=== PATIENT | female | born 1955 | race American Indian/Alaskan Native ===

== ENCOUNTER 2021-02-04 20:00 | Observation (INO) | payer SELFPAY ==
[2021-02-04] MEDS ORDERED: NITROGLYCERIN 0.4 MG TAB SUBL SL ONE (21:26)
[2021-02-04] MEDS ORDERED: MIDAZOLAM 2 MG/2 ML INJ IV ONE (21:27)
[2021-02-04] MEDS ORDERED: SODIUM CHLORIDE 0.9% 500 ML 500 ML IV ONE (21:27)
--- NOTE | 2021-02-04 21:28 | Emergency Department Report ---
ED Chest Pain HPI - General Chief Complaint: Dyspnea/Respdistress Stated Complaint: CHEST PAIN PUI?: No Time Seen by Provider: 02/04/21 21:17 Source: patient, EMS ( EMS documentation not available at time of chart dictati on . Verbal report received from emergency medical service), RN notes reviewed Mode of arrival: Stretcher Limitations: No Limitations - History of Present Illness Initial Comments: The patient is a 65-year-old female. She is not known to myself previously. She recently moved here from [facility]. She believes that she has a history of anxiety and hypertension. She presents to the ER today with c omplaints of central chest pressure, nausea, shortness of breath. It is now resolved. No travel, surgery, immobilization, personal/family history of DVT/PE risk factors. Believes that mother has a history of CHF, and thinks that father has a history of COPD. She was given aspirin by EMS. She reports that she is chest pain-free at this time. No recent cardiac risk ratification that she is aware of. Denies Covid symptomatology Complaint: chest pain -: Sudden Onset: during rest Pain Location: substernal Pain Radiation: none Severity: moderate Quality: aching, heaviness Consistency: now resolved Improves With: nothing Worsens With: nothing Aspirin use within the Past 7 Days: (1) Yes - Related Data On Oral Contraceptives: No Allergies Allergy/AdvReac Type Severity Reaction Status Date / Time No Known Allergies Allergy Verified 02/04/21 21:07 Heart Score - HEART Score History: Moderately suspicious EKG: Non-specific Age: 45-65 Risk factors: 1-2 risk factors Troponin: < normal limit HEART Score: 4 - EKG Read Time Time EKG Completed: 21:20 EKG Read Time: 21:20 - Critical Actions Critical Actions: 4-6 pts:12-16.6% risk of adverse cardiac event. Should be admitted ED Review of Systems ROS: Stated complaint: CHEST PAIN Other details as noted in HPI Constitutional: diaphoresis, malaise. denies: fever Eyes: denies: eye discharge ENT: denies: epistaxis Respiratory: shortness of breath Cardiovascular: chest pain Gastrointestinal: nausea. denies: vomiting, hematemesis, melena, hematochezia Genitourinary: denies: dysuria Musculoskeletal: denies: back pain Neurological: denies: weakness Psychiatric: anxiety Hematological/Lymphatic: denies: easy bleeding ED Past Medical Hx - Past Medical History Hx Hypertension: Yes ED Physical Exam - General Limitations: No Limitations General appearance: alert, in no apparent distress - Head Head exam: Present: atraumatic, normocephalic - Eye Eye exam: Present: normal appearance, EOMI. Absent: nystagmus - ENT ENT exam: Present: normal exam, normal orophraynx, mucous membranes moist, normal external ear exam - Neck Neck exam: Present: normal inspection, full ROM. Absent: tenderness, meningismus - Respiratory Respiratory exam: Present: normal lung sounds bilaterally. Absent: respiratory distress, wheezes, rales, rhonchi, stridor, decreased breath sounds - Cardiovascular Cardiovascular Exam: Present: normal rhythm, tachycardia, normal heart sounds. Absent: bradycardia, irregular rhythm, systolic murmur, diastolic murmur, rubs, gallop - GI/Abdominal GI/Abdominal exam: Present: soft. Absent: distended, tenderness, guarding, rebound, rigid, pulsatile mass - Extremities Exam Extremities exam: Present: normal inspection, full ROM, other (2+ pulses noted in the bilateral upper and lower extremities. There is no palpable cord. negative Homans sign. Muscular compartments are soft. The pelvis is stable.). Absent: pedal edema, calf tenderness - Back Exam Back exam: Present: normal inspection, full ROM. Absent: tenderness, CVA tenderness (R), CVA tenderness (L), paraspinal tenderness, vertebral tenderness - Neurological Exam Neurological exam: Present: alert, oriented X3, other (No facial droop. Tongue midline. Extraocular movements intact bilaterally. Facial sensation intact to light touch in V1, V2, V3 distribution bilaterally. 5 and a 5 strength in 4 extremities. Sensation intact to light touch in 4 extremities.). Absent: motor sensory deficit - Psychiatric Psychiatric exam: Present: anxious - Skin Skin exam: Present: warm, dry, intact, normal color. Absent: rash ED Course Vital Signs 02/04/21 02/04/21 02/04/21 21:06 21:41 22:00 Temperature 98.6 F Pulse Rate 108 H 105 H Respiratory 18 32 H 11 L Rate Blood Pressure 175/88 Blood Pressure 172/86 [Left] O2 Sat by Pulse 100 100 99 Oximetry 02/04/21 02/04/21 02/05/21 23:00 23:24 00:00 Temperature Pulse Rate 95 H 87 Respiratory 11 L Rate Blood Pressure 149/83 146/71 180/90 Blood Pressure [Left] O2 Sat by Pulse 100 98 Oximetry 02/05/21 01:00 Temperature Pulse Rate 93 H Respiratory 22 Rate Blood Pressure 139/78 Blood Pressure [Left] O2 Sat by Pulse 99 Oximetry - Reevaluation(s) Reevaluation #1: 02/05/21 01:46 EKG #[address] scan of the chest is negative for acute findings ERIC score - Eric Score Age > 65: (0) No Aspirin use within the Past 7 Days: (1) Yes 3 or more CAD Risk Factors: (0) No 2 or more Angina events in past 24 hrs: (0) No Known CAD with more than 50% Stenosis: (0) No Elevated Cardiac Markers: (0) No ST Deviation Greater than 0.5mm: (0) No ERIC Score: 1 ED Medical Decision Making - Lab Data Result diagrams: 02/04/21 21:33 02/04/21 21:33 Vital Signs 02/04/21 21:06 Temperature 98.6 F Pulse Rate 108 H Respiratory 18 Rate Blood Pressure 172/86 [Left] O2 Sat by Pulse 100 Oximetry Lab Results 02/04/21 02/04/21 02/04/21 Range/Units 21:33 21:33 21:33 WBC 5.3 (4.5-11.0) K/mm3 RBC 4.49 (3.65-5.03) M/mm3 Hgb 12.7 (10.1-14.3) gm/dl Hct 37.7 (30.3-42.9) % MCV 84 (79-97) fl MCH 28 (28-32) pg MCHC 34 (30-34) % RDW 14.0 (13.2-15.2) % Plt Count 237 (140-440) K/mm3 Lymph % (Auto) 23.5 (13.4-35.0) % [place] % (Auto) 10.7 H (0.0-7.3) % Eos % (Auto) 1.4 (0.0-4.3) % Baso % (Auto) 1.0 (0.0-1.8) % Lymph # (Auto) 1.2 (1.2-5.4) K/mm3 [place] # (Auto) 0.6 (0.0-0.8) K/mm3 Eos # (Auto) 0.1 (0.0-0.4) K/mm3 Baso # (Auto) 0.1 (0.0-0.1) K/mm3 Seg Neutrophils % 63.4 (40.0-70.0) % Seg Neutrophils # 3.3 (1.8-7.7) K/mm3 PT 12.8 (12.2-14.9) Sec. INR 0.87 (0.87-1.13) D-Dimer 285.70 H (0-234) ng/mlDDU Sodium 140 (137-145) mmol/L Potassium 4.5 (3.6-5.0) mmol/L Chloride 103.6 (98-107) mmol/L Carbon Dioxide 25 (22-30) mmol/L Anion Gap 16 mmol/L BUN 13 (7-17) mg/dL Creatinine 0.7 (0.6-1.2) mg/dL Estimated GFR > 60 ml/min BUN/Creatinine Ratio 19 % Glucose 97 (65-100) mg/dL Calcium 9.4 (8.4-10.2) mg/dL Magnesium (1.7-2.3) mg/dL Total Bilirubin 0.30 (0.1-1.2) mg/dL AST 19 (5-40) units/L ALT 17 (7-56) units/L Alkaline Phosphatase 114 (35-129) units/L Total Creatine Kinase (30-135) units/L Troponin T < 0.010 (0.00-0.029) ng/mL Total Protein 7.7 (6.3-8.2) g/dL Albumin 3.8 L (3.9-5) g/dL Albumin/Globulin Ratio 1.0 % TSH (0.270-4.200) mlU/mL 02/04/21 02/04/21 Range/Units 21:33 21:33 WBC (4.5-11.0) K/mm3 RBC (3.65-5.03) M/mm3 Hgb (10.1-14.3) gm/dl Hct (30.3-42.9) % MCV (79-97) fl MCH (28-32) pg MCHC (30-34) % RDW (13.2-15.2) % Plt Count (140-440) K/mm3 Lymph % (Auto) (13.4-35.0) % [place] % (Auto) (0.0-7.3) % Eos % (Auto) (0.0-4.3) % Baso % (Auto) (0.0-1.8) % Lymph # (Auto) (1.2-5.4) K/mm3 [place] # (Auto) (0.0-0.8) K/mm3 Eos # (Auto) (0.0-0.4) K/mm3 Baso # (Auto) (0.0-0.1) K/mm3 Seg Neutrophils % (40.0-70.0) % Seg Neutrophils # (1.8-7.7) K/mm3 PT (12.2-14.9) Sec. INR (0.87-1.13) D-Dimer (0-234) ng/mlDDU Sodium (137-145) mmol/L Potassium (3.6-5.0) mmol/L Chloride (98-107) mmol/L Carbon Dioxide (22-30) mmol/L Anion Gap mmol/L BUN (7-17) mg/dL Creatinine (0.6-1.2) mg/dL Estimated GFR ml/min BUN/Creatinine Ratio % Glucose (65-100) mg/dL Calcium (8.4-10.2) mg/dL Magnesium 2.00 (1.7-2.3) mg/dL Total Bilirubin (0.1-1.2) mg/dL AST (5-40) units/L ALT (7-56) units/L Alkaline Phosphatase (35-129) units/L Total Creatine Kinase 68 (30-135) units/L Troponin T (0.00-0.029) ng/mL Total Protein (6.3-8.2) g/dL Albumin (3.9-5) g/dL Albumin/Globulin Ratio % TSH 3.260 (0.270-4.200) mlU/mL - EKG Data -: EKG Interpreted by Nc EKG shows normal: sinus rhythm Rate: normal - EKG Data 02/04/21 22:43 There is no prior EKG available for comparison. The EKG is interpreted 21: 26 Sinus tachycardia, rate 101 bpm. Normal axis, normal P wave axis. QTC 4 4 4 ms. Minimal motion artifact. Abnormal EKG. This is not a STEMI - Radiology Data Radiology results: pending, report reviewed, image reviewed XR chest 1V ap INDICATION / CLINICAL INFORMATION: Chest Pain. COMPARISON: None available. FINDINGS: SUPPORT DEVICES: None. HEART /PULMONARY VASCULATURE: No significant abnormality. LUNGS / PLEURA: No significant pulmonary or pleural abnormality. No pneumothorax. ADDITIONAL FINDINGS: No significant additional findings. IMPRESSION: 1. No acute findings. Signer Name: Terence Quinn MD Signed: 02/04/2021 8:48 PM Workstation Name: [id number] - Medical Decision Making Differential diagnosis, including but not limited to: Acute coronary syndrome, pneumonia, pulmonary embolism, anxiety, GERD, gastritis, hiatal hernia, costochondritis, anemia Assessment and plan: 65-year-old female, who is tachycardic, but otherwise afebrile, with reassuring vital signs, who is low risk by Wells criteria for pulmonary embolism, who has no DVT or PE risk factors, who is moderate risk for major adverse cardiac event as per heart score, with no recent cardiac risk ratification present, with chest pain, shortness of breath and nausea, strong family history of cardiac disease, no recent cardiac risk ratification, have recommended admission to the medical service for cardiac risk ratification. I discussed this plan of care with the patient. She is agreeable to the plan of care. X-ray the chest unremarkable, laboratory studies unremarkable, D-dimer elevated, CT scan of the chest will be obtained. Hospital physician, Dr. Dena Puga to admit to [facility] with [facility] [employer] Tamika Carl Critical care attestation.: If time is entered above; I have spent that time in minutes in the direct care of this critically ill patient, excluding procedure time. ED Disposition Clinical Impression: Acute chest pain, Elevated blood pressure reading Disposition: ADMITTED INPATIENT Is pt being admited?: Yes Does the pt Need Aspirin: No Condition: Good Instructions: Chest Pain (ED) Referrals: PRIMARY CARE, [Primary Care Provider] - 3-5 Days
--- NOTE | 2021-02-04 21:53 | XRay Report ---
XR chest 1V ap INDICATION / CLINICAL INFORMATION: Chest Pain. COMPARISON: None available. FINDINGS: SUPPORT DEVICES: None. HEART /PULMONARY VASCULATURE: No significant abnormality. LUNGS / PLEURA: No significant pulmonary or pleural abnormality. No pneumothorax. ADDITIONAL FINDINGS: No significant additional findings. IMPRESSION: 1. No acute findings. Signer Name: Terence Quinn MD Signed: 02/04/2021 9:48 PM Workstation Name: [id number]
[2021-02-04 21:59] LABS: Basophils # (Auto) 0.1 K/mm3 (0.0-0.1); Eosinophils # (Auto) 0.1 K/mm3 (0.0-0.4); Eosinophils % (Auto) 1.4 % (0.0-4.3); Hematocrit 37.7 % (30.3-42.9); Hemoglobin 12.7 gm/dl (10.1-14.3); Lymphocytes # (Auto) 1.2 K/mm3 (1.2-5.4); Lymphocytes % (Auto) 23.5 % (13.4-35.0); Mean Corpuscular HGB Conc 34 % (30-34); Mean Corpuscular Volume 84 fl (79-97); Monocytes # (Auto) 0.6 K/mm3 (0.0-0.8); Monocytes % (Auto) 10.7 % (0.0-7.3); Platelet Count 237 K/mm3 (140-440); Red Blood Count 4.49 M/mm3 (3.65-5.03)
[2021-02-04 22:09] LABS: INR 0.87 (0.87-1.13)
[2021-02-04 22:15] LABS: Alanine Aminotransferase 17 units/L (7-56); Albumin 3.8 g/dL (3.9-5); Blood Urea Nitrogen 13 mg/dL (7-17); Calcium 9.4 mg/dL (8.4-10.2); Hemolysis Index 5
[2021-02-04 22:29] LABS: BUN/Creatinine Ratio 19
[2021-02-04] MEDS ORDERED: amLODIPine 5 MG TAB PO ONE (22:50)
[2021-02-04] MEDS ORDERED: ACETAMINOPHEN 325 MG TAB PO PRN ×2 (23:05→23:40)
[2021-02-04] MEDS ORDERED: traMADol 50 MG TAB PO PRN (23:05)
[2021-02-04] MEDS ORDERED: NITROGLYCERIN 0.4 MG TAB SUBL SL PRN (23:05)
[2021-02-04] MEDS ORDERED: MORPHINE 2 MG/1 ML INJ IV PRN (23:05)
[2021-02-04] MEDS ORDERED: HYDROmorphone 1 MG/1 ML INJ IV PRN (23:05)
--- NOTE | 2021-02-04 23:05 | History and Physical Report ---
History of Present Illness Date of examination: 02/04/21 Date of admission: 02/04/21 Chief complaint: Chest pain History of present illness: This is a 65-year-old female seen in the ED at bedside. Patient daughter present at the time of assessment. Per ED record, patient recently moved here from [facility]. She presents to ED with chief complaint of chest pain and shortness of breath. Patient reports a history of hypertension, anxiety and depression. Patient said that she was on blood pressure medicine and had not been compliant with blood pressure medicine. Patient denies alcohol use tobacco use and illicit drug use. Past History Past Medical History: hypertension, hyperlipidemia Past Surgical History: Social history: full code. denies: lives with family, smoking, alcohol abuse, prescription drug abuse, IV drug use Family history: hypertension Medications and Allergies Allergies Allergy/AdvReac Type Severity Reaction Status Date / Time No Known Allergies Allergy Verified 02/04/21 21:07 Home Medications Medication Instructions Recorded Confirmed Last Taken Type No Known Home Medications [No 02/05/21 02/05/21 Unknown History Reported Home Medications] Review of Systems Constitutional: weakness Ears, nose, mouth and throat: no epistaxis, no bleeding gums Cardiovascular: chest pain, shortness of breath Respiratory: shortness of breath Gastrointestinal: no melena Rectal: no hemorrhoids Musculoskeletal: no muscle weakness Integumentary: no rash, no pruritis, no redness, no sores Psychiatric: anxiety, anxiety attacks Hematologic/Lymphatic: no easy bruising, no easy bleeding, no lymphadenopathy, no lymphedema Allergic/Immunologic: no urticaria Exam - Constitutional Vitals: Temp Pulse Resp BP Pulse Ox 98.6 F 108 H 18 172/86 100 02/04/21 21:06 02/04/21 21:06 02/04/21 21:06 02/04/21 21:06 02/04/21 21:06 General appearance: Present: mild distress, well-nourished - EENT Eyes: Present: PERRL ENT: hearing intact, clear oral mucosa - Neck Neck: Present: supple, normal ROM - Respiratory Respiratory effort: normal Respiratory: bilateral: CTA - Cardiovascular Heart Sounds: Present: S1 & S2. Absent: rub, click - Extremities Extremities: pulses symmetrical, No edema Peripheral Pulses: within normal limits - Abdominal General gastrointestinal: Present: soft, non-tender, non-distended, normal bowel sounds Female genitourinary: Present: normal - Integumentary Integumentary: Present: clear, warm, dry - Musculoskeletal Musculoskeletal: gait normal, strength equal bilaterally - Psychiatric Psychiatric: appropriate mood/affect, intact judgment & insight, cooperative - Neurologic Neurologic: CNII-XII intact, moves all extremities - Allied Health Allied health notes reviewed: nursing HEART Score - HEART Score EKG: Non-specific Age: 45-65 Risk factors: 1-2 risk factors Troponin: Troponin T < 0.010 ng/mL (0.00-0.029) 02/04/21 21:33 Troponin: < normal limit - Critical Actions Critical Actions: 4-6 pts:12-16.6% risk of adverse cardiac event. Should be admitted Results - Labs CBC & Chem 7: 02/05/21 04:55 02/05/21 04:55 Labs: Abnormal lab results 02/04/21 02/04/21 02/04/21 Range/Units 21:33 21:33 21:33 [place] % (Auto) 10.7 H (0.0-7.3) % D-Dimer 285.70 H (0-234) ng/mlDDU Albumin 3.8 L (3.9-5) g/dL Assessment and Plan - Patient Problems (1) Acute chest pain Current Visit: Yes Status: Acute Plan to address problem: Patient came with chest painunknown cause Troponin T is negativeno bilateral edema Echocardiogram was ordered [employer] is consulted. (2) Elevated d-dimer Current Visit: Yes Status: Acute Plan to address problem: CT of the chestnegative for pulmonary embolism (3) Essential hypertension Current Visit: Yes Status: Acute Plan to address problem: Monitor blood pressure Resume home antihypertensive lisinopril and hydrochlorothiazide As needed hydralazine (4) Anxiety and depression Current Visit: Yes Status: Acute Plan to address problem: Start [id number] (5) DVT prophylaxis Current Visit: Yes Status: Acute Plan to address problem: Lovenox subcutaneous
[2021-02-04] MEDS ORDERED: hydrALAZINE 20 MG/1 ML INJ IV PRN (23:09)
[2021-02-04] MEDS ORDERED: ONDANSETRON 4 MG/2 ML INJ IV PRN (23:40)
[2021-02-04] MEDS ORDERED: SENNOSIDES 8.6 MG TAB PO PRN (23:40)
[2021-02-04] MEDS ORDERED: MAGNESIUM HYDROXIDE (MOM) ORAL LIQD UDC PO PRN (23:40)
--- NOTE | 2021-02-05 00:20 | Cat Scan Report ---
CTA CHEST WITH CONTRAST INDICATION / CLINICAL INFORMATION: acute chest, + d dimer. TECHNIQUE: Axial CT images were obtained through the chest after injection of Omnipaque 350, 100 cc I V contrast. 3 plane MIP and/or 3D reconstructions were produced. All CT scans at this location are pe rformed using CT dose reduction for ALARA by means of automated exposure control. COMPARISON: None available. FINDINGS: PULMONARY ARTERIES: No pulmonary emboli. THORACIC AORTA: No significant abnormality. HEART: No significant abnormality. CORONARY ARTERY CALCIFICATION: None. MEDIASTINUM / ARIEL: No significant abnormality. PLEURA: No pleural effusion. No pneumothorax. LUNGS: No acute air space or interstitial disease. ADDITIONAL FINDINGS: None. UPPER ABDOMEN: Small hiatal hernia. Noninflamed diverticulosis partially imaged at the descending col on. SKELETAL STRUCTURES: No significant osseous abnormality. IMPRESSION: 1. No CT evidence for pulmonary embolism. 2. Negative for pneumonia. Signer Name: Taran Vazquez MD Signed: 02/05/2021 12:15 AM Workstation Name: [id number]
[2021-02-05 05:45] LABS: Basophils # (Auto) 0.1 K/mm3 (0.0-0.1); Basophils % (Auto) 2.7 % (0.0-1.8); Eosinophils # (Auto) 0.1 K/mm3 (0.0-0.4); Eosinophils % (Auto) 1.5 % (0.0-4.3); Hematocrit 36.7 % (30.3-42.9); Hemoglobin 11.9 gm/dl (10.1-14.3); Lymphocytes # (Auto) 1.5 K/mm3 (1.2-5.4); Lymphocytes % (Auto) 32.5 % (13.4-35.0); Mean Corpuscular HGB Conc 33 % (30-34); Mean Corpuscular Volume 84 fl (79-97); Monocytes # (Auto) 0.2 K/mm3 (0.0-0.8); Monocytes % (Auto) 5.3 % (0.0-7.3); Platelet Count 221 K/mm3 (140-440); Red Blood Count 4.36 M/mm3 (3.65-5.03)
[2021-02-05 06:05] LABS: Alanine Aminotransferase 14 units/L (7-56); Albumin 3.7 g/dL (3.9-5); BUN/Creatinine Ratio 18; Blood Urea Nitrogen 11 mg/dL (7-17); Calcium 8.9 mg/dL (8.4-10.2); Hemolysis Index 3
[2021-02-05] MEDS ORDERED: SERTRALINE 50 MG TAB PO SCH (10:00)
[2021-02-05] MEDS ORDERED: ENOXAPARIN 40 MG/0.4 ML INJ SUB-Q SCH (10:00)
[2021-02-05] MEDS ORDERED: hydroCHLOROthiazide 12.5 MG CAP PO SCH (10:00)
[2021-02-05] MEDS ORDERED: LISINOPRIL 10 MG TAB PO SCH (10:00)
[2021-02-05] MEDS ORDERED: PANTOPRAZOLE 40 MG TAB PO SCH (10:00)
[2021-02-05] MEDS ORDERED: ASPIRIN 81 MG TAB CHEW PO SCH (10:00)
--- NOTE | 2021-02-05 10:18 | Consultation ---
History of Present Illness Consult date: 02/05/21 Consult reason: chest pain History of present illness: 65 year old female presenting with atypical chest pain. Pain described as retrosternal, non-radiating and non-exertional. Pain is intermittent and lasting seconds in duration. PMHx is pertinent for essential hypertension and anxiety disorder. ECG showing NSR, troponin negative x 3 and CTA chest negative for PE. Past History Past Medical History: hypertension, hyperlipidemia Past Surgical History: Social history: full code. denies: lives with family, smoking, alcohol abuse, prescription drug abuse, IV drug use Family history: hypertension Medications and Allergies Allergies Allergy/AdvReac Type Severity Reaction Status Date / Time No Known Allergies Allergy Verified 02/04/21 21:07 Home Medications Medication Instructions Recorded Confirmed Last Taken Type No Known Home Medications [No 02/05/21 02/05/21 Unknown History Reported Home Medications] Active Meds: Active Medications Acetaminophen (Acetaminophen 325 Mg Tab) 650 mg PO Q4H PRN PRN Reason: Pain MILD(1-3)/Fever >100.5/NEWSOME Aspirin (Aspirin 81 Mg Tab Chew) 81 mg PO QDAY NARCISO Atorvastatin Calcium (Atorvastatin 40 Mg Tab) 40 mg PO QHS NARCISO Enoxaparin Sodium (Enoxaparin 40 Mg/0.4 Ml Inj) 40 mg SUB-Q QDAY NARCISO Hydralazine HCl (Hydralazine 20 Mg/1 Ml Inj) 5 mg IV Q4H PRN PRN Reason: Hypertension Hydrochlorothiazide (Hydrochlorothiazide 12.5 Mg Cap) 12.5 mg PO QDAY NARCISO Lisinopril (Lisinopril 10 Mg Tab) 10 mg PO QDAY NARCISO Magnesium Hydroxide (Magnesium Hydroxide (Mom) Oral Liqd Udc) 30 ml PO Q4H PRN PRN Reason: Constipation Morphine Sulfate (Morphine 2 Mg/1 Ml Inj) 2 mg IV Q5MIN PRN PRN Reason: Chest Pain unrelieved by NTG Nitroglycerin (Nitroglycerin 0.4 Mg Tab Subl) 0.4 mg SL Q5M PRN PRN Reason: Chest Pain Ondansetron HCl (Ondansetron 4 Mg/2 Ml Inj) 4 mg IV Q8H PRN PRN Reason: Nausea And Vomiting Pantoprazole Sodium (Pantoprazole 40 Mg Tab) 40 mg PO QDAY NARCISO Senna (Sennosides 8.6 Mg Tab) 8.6 mg PO Q12HR PRN PRN Reason: Constipation Sertraline HCl (Sertraline 50 Mg Tab) 50 mg PO QDAY NARCISO Sodium Chloride (Sodium Chloride 0.9% 10 Ml Flush Syringe) 10 ml IV PRN PRN PRN Reason: LINE FLUSH Sodium Chloride (Sodium Chloride 0.9% 10 Ml Flush Syringe) 10 ml IV BID NARCISO Tramadol HCl (Tramadol 50 Mg Tab) 50 mg PO Q6H PRN PRN Reason: Pain, Moderate (4-6) Trazodone HCl (Trazodone 50 Mg Tab) 50 mg PO QHS NARCISO Review of Systems All systems: negative Physical Examination Vital Signs Temp Pulse Resp BP Pulse Ox 98.6 F 108 H 18 172/86 100 02/04/21 21:06 02/04/21 21:06 02/04/21 21:06 02/04/21 21:06 02/04/21 21:06 General appearance: no acute distress HEENT: Positive: PERRL Neck: Positive: neck supple Cardiac: Positive: Reg Rate and Rhythm Lungs: Positive: Normal Exam Neuro: Positive: Grossly Intact Abdomen: Positive: Soft Extremities: Absent: edema Results 02/05/21 04:55 02/05/21 04:55 Cardiac Enzymes 02/04/21 02/05/21 Range/Units 21:33 04:55 AST 19 17 (5-40) units/L Coagulation 02/04/21 Range/Units 21:33 PT 12.8 (12.2-14.9) Sec. INR 0.87 (0.87-1.13) CBC 02/04/21 02/05/21 Range/Units 21:33 04:55 WBC 5.3 4.6 (4.5-11.0) K/mm3 RBC 4.49 4.36 (3.65-5.03) M/mm3 Hgb 12.7 11.9 (10.1-14.3) gm/dl Hct 37.7 36.7 (30.3-42.9) % Plt Count 237 221 (140-440) K/mm3 Lymph # (Auto) 1.2 1.5 (1.2-5.4) K/mm3 [place] # (Auto) 0.6 0.2 (0.0-0.8) K/mm3 Eos # (Auto) 0.1 0.1 (0.0-0.4) K/mm3 Baso # (Auto) 0.1 0.1 (0.0-0.1) K/mm3 Comprehensive Metabolic Panel 02/04/21 02/05/21 Range/Units 21:33 04:55 Sodium 140 141 (137-145) mmol/L Potassium 4.5 4.0 (3.6-5.0) mmol/L Chloride 103.6 106.2 (98-107) mmol/L Carbon Dioxide 25 25 (22-30) mmol/L BUN 13 11 (7-17) mg/dL Creatinine 0.7 0.6 (0.6-1.2) mg/dL Glucose 97 99 (65-100) mg/dL Calcium 9.4 8.9 (8.4-10.2) mg/dL AST 19 17 (5-40) units/L ALT 17 14 (7-56) units/L Alkaline Phosphatase 114 104 (35-129) units/L Total Protein 7.7 7.1 (6.3-8.2) g/dL Albumin 3.8 L 3.7 L (3.9-5) g/dL - EKG Interpretation EKG: sinus rhythm EKG interpretations - Telemetry EKG Rhythm: Sinus Rhythm Assessment and Plan Atypical chest pain Negative troponin x 3 No ischemic ECG changes Normal CTA chest Currently asymptomatic Essential primary hypertension Hyperlipidemia Recommendations: Patient may go home and follow-up with cardiology as outpatient Patient given contact information for our office and will call to set up appointment on sunday
--- NOTE | 2021-02-05 11:49 | Discharge Summary ---
Providers - Providers Date of Admission: 02/05/21 02:40 Date of discharge: 02/05/21 Attending physician: TERELL SERRANO MD 02/04/21 Consult to Cardiac Rehabilitation [CONS] Routine Reason For Exam: Phase I 02/04/21 23:05 Consult to Cardiology [CONS] Routine Consulting Provider: CHER SCHMID Reason For Exam: chest pain Primary care physician: GIFT MANAGER Hospitalization Condition: Good Exam - Constitutional Vitals: Temp Pulse Resp BP Pulse Ox 98.0 F 77 16 153/63 95 02/05/21 03:55 02/05/21 03:55 02/05/21 03:55 02/05/21 03:55 02/05/21 03:55 Plan Care Plan Goals: Follow-up with primary care to address your history of anxiety. Follow-up with the cardiology appointment for possible stress test. Call the number provided to you Sunday to schedule appointment. Follow up with: ANKUSH BRIDGES MD [Primary Care Provider] - 3-5 Days CHER SCHMID MD [Staff Physician] - 14 Days Prescriptions: AtorvaSTATin [Lipitor] 40 mg PO QHS 30 Days #30 tab Aspirin [Aspirin BABY CHEW TAB] 81 mg PO QDAY 30 Days #30 tab.chew hydroCHLOROthiazide [HCTZ] 12.5 mg PO QDAY 30 Days #30 capsule lisinopriL [Zestril TAB] 10 mg PO QDAY 30 Days #30 tablet
[2021-02-05 12:21] VITALS: BP 151/63
[2021-02-05] MEDS ORDERED: traZODone 50 MG TAB PO SCH (22:00)
--- NOTE | 2021-02-08 10:47 | Electrocardiograph Report ---
[facility] Test Date: 2021-02-04 Test Time: 21:26:24 Pat Name: PETRONA PALMER Department: Room: A477 1 Gender: F Web Software Engineer: poornima : 1955 Requested By: VALENTINE CHAPMAN Order Number: [id number] Reading MD: Batsheva Noel Measurements Intervals [place] Rate: 101 P: 62 AL: 176 QRS: 65 QRSD: 82 T: 56 QT: 342 QTc: 444 Interpretive Statements Sinus tachycardia Right atrial enlargement No previous ECG available for comparison Electronically Signed On 02-08-2021 10:47:04 EST by Batsheva Noel
--- NOTE | 2021-02-08 10:51 | Electrocardiograph Report ---
[facility] Test Date: 2021-02-05 Test Time: 01:15:41 Pat Name: PETRONA PALMER Department: Room: A477 1 Gender: F Pharmacy Specialist: NASEEM : 1955 Requested By: TERELL SERRANO Order Number: [id number] Reading MD: Batsheva Noel Measurements Intervals [place] Rate: 98 P: 52 [place]: 156 QRS: 39 QRSD: 78 T: 38 QT: 358 QTc: 456 Interpretive Statements Sinus rhythm LAE, consider biatrial enlargement Low voltage, precordial leads Compared to ECG 02/04/2021 21:26:24 No significant change Electronically Signed On 02-08-2021 10:51:20 EST by Batsheva Noel
--- NOTE | 2021-02-08 10:52 | Electrocardiograph Report ---
[facility] Test Date: 2021-02-05 Test Time: 07:30:36 Pat Name: PETRONA PALMER Department: Room: A477 1 Gender: F Psychologist Counseling: LORENE : 1955 Requested By: BENJAMIN VALERA Order Number: [id number] Reading MD: Batsheva Noel Measurements Intervals [place] Rate: 85 P: 55 NM: 145 QRS: 36 QRSD: 90 T: 36 QT: 385 QTc: 459 Interpretive Statements Sinus rhythm Probable left atrial enlargement Compared to ECG 02/05/2021 01:15:41 No significant changes Electronically Signed On 02-08-2021 10:52:03 EST by Batsheva Noel
--- NOTE | 2021-02-08 10:54 | Electrocardiograph Report ---
[facility] Test Date: 2021-02-05 Test Time: 10:23:00 Pat Name: PETRONA PALMER Department: Room: A477 1 Gender: F Pool Hand: LORENE : 1955 Requested By: BENJAMIN VALERA Order Number: [id number] Reading MD: Batsheva Noel Measurements Intervals [place] Rate: 87 P: 44 OR: 143 QRS: 22 QRSD: 86 T: 31 QT: 381 QTc: 458 Interpretive Statements Sinus rhythm Left atrial enlargement Compared to ECG 02/05/2021 07:30:36 No significant changes Electronically Signed On 02-08-2021 10:53:36 EST by Batsheva Noel
== END 2021-02-05 15:40 | disposition home or self-care (01) ==
LOC: ED 20:00 → 4A 02-05 02:40
PROVIDERS: ADMIT Internal Medicine Geriatric Medicine; ATTEND Student in an Organized Health Care Education/Training Program
DX: R07.89 Other chest pain (principal); I10 Essential (primary) hypertension; F41.9 Anxiety disorder, unspecified; E78.5 Hyperlipidemia, unspecified; F32.A Depression, unspecified; R77.8 Other specified abnormalities of plasma proteins; Z98.891 History of uterine scar from previous surgery; Z79.82 Long term (current) use of aspirin; Z79.899 Other long term (current) drug therapy
CPT/HCPCS: 36415; 71045; 71275; 80053; 82550; 83036; 83735; 84443; 84484; 85025; 85379; 85610; 93005; 93306; 96374; 99285; G0378; J2250; J7040; Q9967